=== PATIENT | female | born 1965 | race Caucasian/White ===

== ENCOUNTER 2017-04-20 01:40 | Emergency (ER) | payer OTHER ==
[2017-04-20 02:31] LABS: BASOPHIL % 0.4 % (0-2); PLATELET COUNT 253 x10^3mcL (130-400)
[2017-04-20 02:46] LABS: CALCIUM 8.7 mg/dL (8.5-10.1); CARBON DIOXIDE 25.5 mmol/L (21-32); CHLORIDE SERUM 108 mmol/L (98-107); GFR1 > 60 mL/min; GLUCOSE SERUM 146 mg/dL (74-106); POTASSIUM SERUM 3.8 mmol/L (3.5-5.1); SODIUM SERUM 144 mmol/L (136-145)
[2017-04-20 02:51] LABS: ALBUMIN 3.6 g/dL (3.4-5.0); ALKALINE PHOSPHATASE 117 U/L (46-116); ALT/SGPT 150 U/L (14-59); AST/SGOT 66 U/L (15-37); BILIRUBIN TOTAL 0.3 mg/dL (0.20-1.00); TOTAL PROTEIN, SERUM 7.7 g/dL (6.4-8.2)
[2017-04-20 03:25] VITALS: BP 156/77
== END 2017-04-20 03:25 | disposition home or self-care (01) ==
LOC: ED 01:40
PROVIDERS: Emergency Medicine
DX: R06.00 Dyspnea, unspecified (principal); R07.89 Other chest pain; R45.0 Nervousness
CPT/HCPCS: 36415; Q0092

== ENCOUNTER 2017-05-03 01:24 | Emergency (ER) | payer OTHER ==
[2017-05-03 03:21] VITALS: BP 116/66
== END 2017-05-03 03:21 | disposition home or self-care (01) ==
LOC: ED 01:24
DX: F41.9 Anxiety disorder, unspecified (principal); M54.6 Pain in thoracic spine
CPT/HCPCS: J1885

== ENCOUNTER 2017-05-16 20:37 | Emergency (ER) | payer OTHER ==
[2017-05-16 23:12] VITALS: BP 134/77
== END 2017-05-16 23:12 | disposition home or self-care (01) ==
LOC: ED 20:37
DX: F41.9 Anxiety disorder, unspecified (principal); M54.9 Dorsalgia, unspecified

== ENCOUNTER 2017-06-01 23:53 | Emergency (ER) | payer OTHER ==
[2017-06-02 01:48] VITALS: BP 146/94
== END 2017-06-02 01:48 | disposition home or self-care (01) ==
LOC: ED 23:53
DX: F41.9 Anxiety disorder, unspecified (principal); G44.209 Tension-type headache, unspecified, not intractable; F32.9 Major depressive disorder, single episode, unspecified; R03.0 Elevated blood-pressure reading, without diagnosis of hypertension

== ENCOUNTER 2020-03-01 21:25 | Emergency (ER) | payer OTHER ==
[~2020-03-01] VITALS: Ht 154.9 cm; Wt 100.2 kg
[2020-03-01 21:36] VITALS: Ht 154.9 cm; Wt 100.2 kg
[2020-03-01 22:23] LABS: BASOPHIL % 0.2 % (0-2); PLATELET COUNT 257 x10^3mcL (130-400); RED CELL DISTRIBUTION WIDTH 12.9 % (11.5-14.5)
[2020-03-01 22:42] LABS: CALCIUM 9.1 mg/dL (8.5-10.1); CARBON DIOXIDE 25.4 mmol/L (21-32); CHLORIDE SERUM 104 mmol/L (98-107); CREATININE SERUM 0.8 mg/dL (0.6-1.0); GFR1 > 60 mL/min; GLUCOSE SERUM 116 mg/dL (74-106); POTASSIUM SERUM 4.1 mmol/L (3.5-5.1); SODIUM SERUM 141 mmol/L (136-145)
[2020-03-01 22:47] LABS: ALBUMIN 3.6 g/dL (3.4-5.0); ALKALINE PHOSPHATASE 94 U/L (46-116); ALT/SGPT 85 U/L (14-59); AST/SGOT 40 U/L (15-37); TOTAL PROTEIN, SERUM 7.7 g/dL (6.4-8.2)
[2020-03-01 23:19] LABS: T3 TOTAL 1.38 ng/mL
[2020-03-01 23:26] LABS: FREE T4 1.01 ng/dL (0.76-1.46); FREE THYROXINE INDEX 2.4 ug/dL (1.4-4.5); T4(THYROXINE) 8.6 ug/dL (4.7-13.3)
[2020-03-02 00:30] VITALS: BP 109/64
== END 2020-03-02 00:30 | disposition home or self-care (01) ==
LOC: ED 21:25
PROVIDERS: Emergency Medicine
DX: R53.83 Other fatigue (principal); T38.3X5A Adverse effect of insulin and oral hypoglycemic [antidiabetic] drugs, initial encounter; I10 Essential (primary) hypertension; E11.9 Type 2 diabetes mellitus without complications; Y92.89 Other specified places as the place of occurrence of the external cause
CPT/HCPCS: 82962; 84439; Q0092